=== PATIENT | female | born 1950 | race Caucasian/White ===

== ENCOUNTER → 2022-01-27 16:24 | Outpatient (BNVA) | payer OTHER, SELFPAY | PROVIDERS: Family Provider Internal Medicine; PCP Hospitalist; Visit Provider Internal Medicine | DX: M35.00 Sjogren syndrome, unspecified (principal) | CPT/HCPCS: 36415; 72040; 72100; 73502; 80053; 85025; 85651; 86140 ==

== ENCOUNTER → 2022-04-30 15:11 | Outpatient (BNVA) | payer OTHER, SELFPAY | PROVIDERS: Family Provider Internal Medicine; PCP Hospitalist; Visit Provider Internal Medicine | DX: M54.50 Low back pain, unspecified (principal); M35.00 Sjogren syndrome, unspecified | CPT/HCPCS: 80053; 85025; 85651; 86140 ==

== ENCOUNTER → 2022-08-04 15:31 | Outpatient (BNVA) | payer OTHER, SELFPAY | PROVIDERS: Family Provider Internal Medicine; PCP Hospitalist; Visit Provider Internal Medicine | DX: M54.9 Dorsalgia, unspecified (principal); M35.00 Sjogren syndrome, unspecified; R06.00 Dyspnea, unspecified; M54.50 Low back pain, unspecified | CPT/HCPCS: 36415; 80053; 83735; 84100; 84439; 84443; 85025; 85652; 86140 ==

== ENCOUNTER → 2022-09-23 13:39 | Outpatient (BNVA) | payer OTHER, SELFPAY | PROVIDERS: Family Provider Internal Medicine; PCP Hospitalist; Visit Provider Anesthesiology Pain Medicine | DX: M16.9 Osteoarthritis of hip, unspecified (principal) | CPT/HCPCS: 77002 ==

== ENCOUNTER 2022-09-30 09:37 | Outpatient (RCR) | payer MEDICARE, SELFPAY | END 2022-10-24 23:59 | disposition home or self-care (01) | LOC: SPT 09:37 | PROVIDERS: Family Provider Internal Medicine; PCP Hospitalist; Visit Provider Anesthesiology Pain Medicine | DX: M54.50 Low back pain, unspecified (principal); G89.29 Other chronic pain | CPT/HCPCS: 97110; 97161 ==

== ENCOUNTER → 2022-10-07 12:55 | Outpatient (BNVA) | payer MEDICARE, SELFPAY | PROVIDERS: Family Provider Internal Medicine; PCP Hospitalist; Visit Provider Anesthesiology Pain Medicine | DX: M16.12 Unilateral primary osteoarthritis, left hip (principal) | CPT/HCPCS: 20610; 77002; J1030; J3490 ==

== ENCOUNTER → 2022-10-21 08:51 | Outpatient (BNVA) | payer MEDICARE, SELFPAY | PROVIDERS: Family Provider Internal Medicine; PCP Hospitalist; Visit Provider Anesthesiology Pain Medicine | DX: M47.816 Spondylosis without myelopathy or radiculopathy, lumbar region (principal); M54.16 Radiculopathy, lumbar region; M16.11 Unilateral primary osteoarthritis, right hip | CPT/HCPCS: 99213; 99214 ==

== ENCOUNTER 2022-10-25 06:00 | Outpatient (RCR) | payer MEDICARE, SELFPAY | END 2022-11-24 23:59 | disposition home or self-care (01) | LOC: SPT 06:00 | PROVIDERS: PCP Hospitalist; Visit Provider Anesthesiology Pain Medicine | DX: M54.50 Low back pain, unspecified (principal); G89.29 Other chronic pain | CPT/HCPCS: 97110 ==

== ENCOUNTER 2022-11-28 08:43 | Outpatient (RCR) | payer MEDICARE, SELFPAY | END 2022-11-28 23:59 | disposition home or self-care (01) | LOC: SPT 08:43 | PROVIDERS: PCP Hospitalist; Visit Provider Anesthesiology Pain Medicine | DX: M54.50 Low back pain, unspecified (principal); G89.29 Other chronic pain | CPT/HCPCS: 97110 ==

== ENCOUNTER → 2022-12-01 14:30 | Outpatient (BNVA) | payer MEDICARE, SELFPAY | PROVIDERS: PCP Hospitalist; Visit Provider Internal Medicine | DX: H93.19 Tinnitus, unspecified ear (principal); M35.00 Sjogren syndrome, unspecified; M54.50 Low back pain, unspecified; M54.2 Cervicalgia | CPT/HCPCS: 99214 ==

== ENCOUNTER → 2022-12-09 08:42 | Outpatient (BNVA) | payer MEDICARE, SELFPAY | PROVIDERS: PCP Hospitalist; Visit Provider Otolaryngology | DX: H90.3 Sensorineural hearing loss, bilateral (principal); H93.13 Tinnitus, bilateral; Q18.1 Preauricular sinus and cyst | CPT/HCPCS: 99203 ==

== ENCOUNTER → 2023-01-21 13:22 | Outpatient (BNVA) | payer MEDICARE, SELFPAY | PROVIDERS: PCP Hospitalist; Visit Provider Internal Medicine | DX: M35.00 Sjogren syndrome, unspecified (principal); M54.50 Low back pain, unspecified; H93.19 Tinnitus, unspecified ear | CPT/HCPCS: 99213 ==

== ENCOUNTER → 2023-02-12 09:54 | Outpatient (BNVA) | payer MEDICARE, SELFPAY | PROVIDERS: PCP Hospitalist; Visit Provider Anesthesiology Pain Medicine | DX: M47.816 Spondylosis without myelopathy or radiculopathy, lumbar region; M54.16 Radiculopathy, lumbar region; M16.11 Unilateral primary osteoarthritis, right hip | CPT/HCPCS: 99214 ==

== ENCOUNTER → 2023-02-26 14:09 | Outpatient (BNVA) | payer MEDICARE, SELFPAY | PROVIDERS: PCP Hospitalist; Visit Provider Anesthesiology Pain Medicine | DX: M16.12 Unilateral primary osteoarthritis, left hip (principal) | CPT/HCPCS: 20610; 77002; J1030; J3490 ==

== ENCOUNTER → 2023-04-15 08:52 | Outpatient (BNVA) | payer MEDICARE, SELFPAY | PROVIDERS: PCP Hospitalist; Visit Provider Anesthesiology Pain Medicine | DX: M47.816 Spondylosis without myelopathy or radiculopathy, lumbar region; M54.16 Radiculopathy, lumbar region; M16.12 Unilateral primary osteoarthritis, left hip | CPT/HCPCS: 99213 ==

== ENCOUNTER → 2023-05-07 10:56 | Outpatient (BNVA) | payer MEDICARE, SELFPAY | PROVIDERS: PCP Hospitalist; Visit Provider Internal Medicine | DX: M35.00 Sjogren syndrome, unspecified (principal); M54.50 Low back pain, unspecified; Z79.899 Other long term (current) drug therapy; H93.19 Tinnitus, unspecified ear | CPT/HCPCS: 36415; 80053; 85025; 85651; 86140; 99214 ==

== ENCOUNTER → 2023-05-14 08:55 | Outpatient (BNVA) | payer MEDICARE, SELFPAY | PROVIDERS: PCP Hospitalist; Visit Provider Podiatrist Foot & Ankle Surgery | DX: M20.42 Other hammer toe(s) (acquired), left foot; M76.821 Posterior tibial tendinitis, right leg; M76.822 Posterior tibial tendinitis, left leg | CPT/HCPCS: 73630; 99203 ==

== ENCOUNTER → 2023-06-04 10:02 | Outpatient (BNVA) | payer MEDICARE, SELFPAY | PROVIDERS: PCP Hospitalist; Visit Provider Podiatrist Foot & Ankle Surgery | DX: M20.42 Other hammer toe(s) (acquired), left foot; M76.821 Posterior tibial tendinitis, right leg; M76.822 Posterior tibial tendinitis, left leg | CPT/HCPCS: 99213 ==

== ENCOUNTER 2023-07-15 11:07 | Outpatient (CLI) | payer MEDICARE, SELFPAY | END 2023-07-15 11:08 | disposition home or self-care (01) | LOC: SPT 11:07 | PROVIDERS: PCP Hospitalist; Visit Provider Podiatrist Foot & Ankle Surgery | DX: Z46.89 Encounter for fitting and adjustment of other specified devices (principal); M47.816 Spondylosis without myelopathy or radiculopathy, lumbar region; M54.16 Radiculopathy, lumbar region; M16.10 Unilateral primary osteoarthritis, unspecified hip; M76.829 Posterior tibial tendinitis, unspecified leg | CPT/HCPCS: 97760; 99214; L3030 ==

== ENCOUNTER → 2023-07-29 13:45 | Outpatient (BNVA) | payer MEDICARE, SELFPAY | PROVIDERS: PCP Hospitalist; Visit Provider Anesthesiology Pain Medicine | DX: M16.12 Unilateral primary osteoarthritis, left hip (principal); S73.192A Other sprain of left hip, initial encounter; X58.XXXA Exposure to other specified factors, initial encounter | CPT/HCPCS: 20610; 77002 ==

== ENCOUNTER → 2023-08-12 12:56 | Outpatient (BNVA) | payer MEDICARE, SELFPAY | PROVIDERS: PCP Hospitalist; Visit Provider Anesthesiology Pain Medicine | DX: M16.11 Unilateral primary osteoarthritis, right hip | CPT/HCPCS: 20610; 77002; J1010; J3490 ==

== ENCOUNTER 2023-08-27 09:17 | Outpatient (CLI) | payer MEDICARE, SELFPAY ==
--- NOTE | 2023-08-27 09:30 | MR_ITS ---
WS: [id number] EXAMINATION: MR hip LT wo con* [id number] ORDER DATE: 08/27/2023 9:42 AM COMPARISON: None. HISTORY: S73.199A - Other sprain of unspecified hip, initial encou... CONTRAST: None. TECHNIQUE: Coronal STIR of the Pelvis. Coronal proton density, coronal T1, axial T2 fat sat, axial T1 , sagittal T2 fat sat, and sagittal T1 performed of the hip. FINDINGS: Postoperative changes lower lumbar spine. Normal bone marrow signal in the LEFT femoral head and neck . No evidence of avascular necrosis. No edema in the LEFT acetabulum. Moderate degenerative narrowing LEFT hip. Normal bone marrow signal in the proximal femurs bilaterally. Moderate degenerative narrowing RIGHT hip. Normal bone marrow signal RIGHT hip. Mild degenerative art hritis sacroiliac joints. Normal visualized pubic rami. MR/MR hip LT wo con* [id number] IMPRESSION: 1. Moderate degenerative narrowing LEFT hip. No acute fractures. No evidence o f avascular necrosis. 2. Normal bone marrow signal in the LEFT femoral head and acetabulum. 3. Postoperative changes lower lumbar spine. 4. No other acute findings.
== END 2023-08-27 09:18 | disposition home or self-care (01) ==
LOC: RAD 09:20
PROVIDERS: PCP Hospitalist; Visit Provider Anesthesiology Pain Medicine
DX: S73.192A Other sprain of left hip, initial encounter (principal); M16.12 Unilateral primary osteoarthritis, left hip; X58.XXXA Exposure to other specified factors, initial encounter
CPT/HCPCS: 73721

== ENCOUNTER → 2023-09-07 09:32 | Outpatient (BNVA) | payer MEDICARE, SELFPAY | PROVIDERS: PCP Hospitalist; Visit Provider Anesthesiology Pain Medicine | DX: M54.50 Low back pain, unspecified (principal); G89.29 Other chronic pain; M25.551 Pain in right hip; M25.552 Pain in left hip | CPT/HCPCS: 72110; 99214 ==

== ENCOUNTER → 2023-09-09 14:40 | Outpatient (BNVA) | payer MEDICARE, SELFPAY | PROVIDERS: PCP Hospitalist; Visit Provider Internal Medicine Rheumatology | DX: M35.00 Sjogren syndrome, unspecified (principal); Z79.899 Other long term (current) drug therapy; Z11.59 Encounter for screening for other viral diseases; Z11.1 Encounter for screening for respiratory tuberculosis; M18.11 Unilateral primary osteoarthritis of first carpometacarpal joint, right hand; M19.041 Primary osteoarthritis, right hand; M81.0 Age-related osteoporosis without current pathological fracture; M19.90 Unspecified osteoarthritis, unspecified site | CPT/HCPCS: 36415; 73130; 80076; 82565; 85025; 85651; 86140; 86200; 86431; 86480; 86704; 86803; 87340; 99214 ==

== ENCOUNTER → 2023-09-24 09:14 | Outpatient (BNVA) | payer MEDICARE, SELFPAY | PROVIDERS: PCP Hospitalist; Visit Provider Anesthesiology Pain Medicine | DX: M54.50 Low back pain, unspecified (principal); M25.551 Pain in right hip; M25.552 Pain in left hip | CPT/HCPCS: 99214 ==

== ENCOUNTER 2023-12-23 10:42 | Outpatient (CLI) | payer MEDICARE, SELFPAY ==
[2023-12-23 11:14] LABS: Basophils % 0.4 %; Eosinophils # 0.1 10^3/uL (0.0-0.8); Eosinophils % 2.8 %; Hematocrit 40.1 % (36-47); Lymphocytes # 1.3 10^3/uL (0.8-4.8); Lymphocytes % 27.8 %; Mean Corpuscular HGB Conc 31.9 g/dL (30-55); Mean Corpuscular Hemoglobin 26.9 pg (27-33); Mean Corpuscular Volume 84.4 fl (85-98); Mean Platelet Volume 10.7 fL (7.4-10.4); Monocytes # 0.4 10^3/uL (0.2-0.9); Monocytes % 8.5 %; Neutrophils # 2.85 10^3/uL (1.8-7.7); Neutrophils % 60.3 %; Nucleated Red Blood Cells % 0 %; Platelet Count 228 10^3/cmm (157-399); Red Blood Count 4.75 10^6/uL (3.85-5.65); Red Cell Distribution Width 13.1 % (12.1-15.1); White Blood Count 4.72 10^3/uL (3.29-11.43)
[2023-12-23 11:16] LABS: Erythrocyte Sedimentation Rate 16 mm/hr (0-15)
[2023-12-23 11:32] LABS: Alanine Aminotransferase 47 U/L (0-33); Alkaline Phosphatase 101 U/L (35-105); Aspartate Amino Transferase 21 U/L (0-32); Globulin 2.6 g/dL (1.3-4.6); Total Bilirubin 0.3 mg/dL (0.15-1.2); Total Protein 6.6 g/dL (6.6-8.7)
== END 2023-12-23 10:43 | disposition home or self-care (01) ==
LOC: LAB 10:43
PROVIDERS: PCP Hospitalist; Visit Provider Internal Medicine Rheumatology
DX: Z79.899 Other long term (current) drug therapy (principal); M19.90 Unspecified osteoarthritis, unspecified site
CPT/HCPCS: 36415; 80076; 82565; 85025; 85651; 86140

== ENCOUNTER → 2024-01-27 13:49 | Outpatient (BNVA) | payer MEDICARE, SELFPAY | PROVIDERS: PCP Hospitalist; Visit Provider Internal Medicine Rheumatology | DX: M35.00 Sjogren syndrome, unspecified (principal); M81.0 Age-related osteoporosis without current pathological fracture; M19.90 Unspecified osteoarthritis, unspecified site; Z79.899 Other long term (current) drug therapy | CPT/HCPCS: 99214 ==

== ENCOUNTER 2024-03-02 10:43 | Outpatient (CLI) | payer MEDICARE, SELFPAY ==
[2024-03-02 11:38] LABS: Basophils % 0.7 %; Eosinophils # 0.1 10^3/uL (0.0-0.8); Eosinophils % 2.1 %; Hematocrit 37.4 % (36-47); Lymphocytes # 1.4 10^3/uL (0.8-4.8); Lymphocytes % 24.7 %; Mean Corpuscular HGB Conc 32.6 g/dL (30-55); Mean Corpuscular Hemoglobin 27.5 pg (27-33); Mean Corpuscular Volume 84.4 fl (85-98); Mean Platelet Volume 10.6 fL (7.4-10.4); Monocytes # 0.5 10^3/uL (0.2-0.9); Monocytes % 8.6 %; Neutrophils # 3.69 10^3/uL (1.8-7.7); Neutrophils % 63.6 %; Nucleated Red Blood Cells % 0 %; Platelet Count 239 10^3/cmm (157-399); Red Blood Count 4.43 10^6/uL (3.85-5.65)
[2024-03-02 11:59] LABS: Alanine Aminotransferase 56 U/L (0-33); Albumin Level 3.8 g/dL (3.5-5.2); Alkaline Phosphatase 96 U/L (35-105); Aspartate Amino Transferase 20 U/L (0-32); Total Bilirubin 0.3 mg/dL (0.15-1.2); Total Protein 5.8 g/dL (6.6-8.7)
[2024-03-02 12:25] LABS: Erythrocyte Sedimentation Rate 28 mm/hr (0-15)
== END 2024-03-02 10:44 | disposition home or self-care (01) ==
LOC: LAB 10:44
PROVIDERS: PCP Hospitalist; Visit Provider Internal Medicine Rheumatology
DX: Z79.899 Other long term (current) drug therapy (principal); M19.90 Unspecified osteoarthritis, unspecified site; M35.00 Sjogren syndrome, unspecified
CPT/HCPCS: 36415; 80076; 82565; 85025; 85651; 86140

== ENCOUNTER 2024-04-20 18:42 | Emergency (ER) | payer MEDICARE, SELFPAY ==
[2024-04-20 19:03] VITALS: BP 156/95; PULSE 72; RESP 18; TEMP 36.9; O2SAT 93; BMI 35.2
--- NOTE | 2024-04-20 19:08 | XRR_ITS ---
PROCEDURE INFORMATION: Exam: XR Right Hip Exam date and time: 04/20/2024 7:26 PM Age: 73 years old Clinical indication: Hip pain; Right hip; Additional info: W/ pelvis, severe pain TECHNIQUE: Imaging protocol: Radiologic exam of the right hip. Views: 1 view hip with pelvis when performed. COMPARISON: CR XR hip RT 2-3V wo/w pel* [id number] 01/27/2022 4:28 PM FINDINGS: Bones/joints: Unremarkable. No acute fracture. Soft tissues: Unremarkable. XR/XR hip RT 2-3V wo/w pel* [id number] IMPRESSION: No acute findings.
--- NOTE | 2024-04-20 19:08 | XRR_ITS ---
PROCEDURE INFORMATION: Exam: XR Lumbosacral Spine Exam date and time: 04/20/2024 7:29 PM Age: 73 years old Clinical indication: Low back pain; Prior surgery; Surgery date: 6+ months; Surgery type: L-spine; Additional info: Back surgery 2 years ago, severe pain TECHNIQUE: Imaging protocol: Radiologic exam of the lumbosacral spine. Views: 2 or 3 views. COMPARISON: CR (PELVIS, ) 04/20/2024 7:26 PM FINDINGS: Tubes, catheters and devices: Posterior fusion from L4 through S1 with intervertebral disc devices. The hardware appears intact. Bones/joints: Preserved lumbar vertebral body heights otherwise. Facet degenerative changes. Degenerative disc changes between L1-L2. Soft tissues: Unremarkable. XR/XR lumbar spine 2-3V* [id number] IMPRESSION: As above.
--- NOTE | 2024-04-20 19:09 | W.ED.BACK ---
HPI - Back Pain/Injury General: Chief Complaint: Extremity Injury, Lower Stated Complaint: right leg pain Time Seen by Provider: 04/20/24 19:01 Source: patient Mode of arrival: ambulatory Limitations: no limitations History of Present Illness: Patient is a 73-year-old female who presents the emergency department complaining of right low back and right hip pain for the past week. Patient states this has been making it hard to walk. Denies any falls or trauma, but wants to make sure her hip is not fractured. States that the pain radiates all the way down her right leg, denies history of DVT. She is not reporting any calf pain or swelling, redness or coolness to her extremities, or other concerning signs or symptoms of DVT. States that she has been taking some old hydrocodone at home and that this only takes the edge off but comes right back. She also states that she takes pregabalin and venlafaxine for fibromyalgia. She does report a history of low back surgery. She is not reporting any bowel or bladder incontinence, distal paralysis or paresthesias, saddle anesthesia, or other concerning red flag symptoms. Does not report any fevers, trauma, unexplained weight loss, neurological symptoms, IVDU, steroid use, or history of cancer. MD elicited complaint: back pain Onset (ago): week(s) Timing: constant Severity: severe Location: right lower back Radiation: other (Right hip, right lower extremity) Exacerbating factors: movement and walking Relieving factors: none Associated symptoms: Deny abdominal pain, difficulty walking, fecal incontinence, fever(s) or syncope Treatments prior to arrival: prescription analgesics Related Data Home Medications Medication Instructions Recorded Confirmed ascorbate calcium (vitamin C) 500 500 mg PO DAILY 10/25/21 01/27/24 mg tablet atorvastatin 40 mg tablet 40 mg PO DAILY 10/25/21 01/27/24 brimonidine 0.2 %-timolol 0.5 % 1 drp ophthalmic (eye) BID 10/25/21 01/27/24 eye drops (Combigan) calcium carbonate 200 mg PO BID 10/25/21 01/27/24 carvedilol 25 mg tablet 25 mg PO BID 10/25/21 01/27/24 fluticasone propionate 50 1 spray intranasal DAILY 10/25/21 01/27/24 mcg/actuation nasal spray,suspension indapamide 1.25 mg tablet 1.25 mg PO QAM 10/25/21 01/27/24 levothyroxine 50 mcg capsule 50 mcg PO DAILY 10/25/21 01/27/24 magnesium oxide 500 mg capsule 500 mg PO DAILY 10/25/21 01/27/24 multivitamin 1 tab PO DAILY 10/25/21 01/27/24 potassium chloride 20 mEq 20 meq PO DAILY 10/25/21 01/27/24 tablet,extended release vitamin A-vitamin C-vit E-min 1 tab PO DAILY 10/25/21 01/27/24 tablet furosemide 20 mg tablet 20 mg PO DAILY 07/15/23 01/27/24 triamcinolone acetonide 0.1 % 1 applic dental BID 09/09/23 01/27/24 dental paste Previous Rx's Medication Instructions Recorded prednisone 5 mg tablet See Rx Instructions PO DAILY #60 01/21/23 tabs custom orthotics #1 ea 06/04/23 leflunomide 20 mg tablet 20 mg PO DAILY #90 tabs 01/27/24 venlafaxine 75 mg tablet See Rx Instructions .Route 02/22/24 .COMPLEX #270 tabs pregabalin 200 mg capsule (Lyrica) 200 mg PO TID #270 caps 02/29/24 prednisone 20 mg tablet 40 mg (2 x 20 mg) PO ONCE 5 days 04/20/24 #10 tabs Allergies Allergy/AdvReac Type Severity Reaction Status Date / Time acetaminophen [From Percocet] Allergy Mild hallucinati Verified 04/20/24 19:12 ons cefdinir Allergy Mild hives Verified 04/20/24 19:12 nickel Allergy Mild hives Verified 04/20/24 19:12 oxycodone [From Percocet] Allergy Mild hallucinati Verified 04/20/24 19:12 ons Sulfa (Sulfonamide Allergy Mild hives Verified 04/20/24 19:12 Antibiotics) oxymetazoline Allergy Unknown Verified 04/20/24 19:12 Penicillins Allergy hives Verified 04/20/24 19:12 Review of Systems General: Reports: 10 or more systems reviewed and unremarkable except in HPI and below Const: Reports: other (denies trauma); Denies: fever(s), change in weight or night sweats Card: Denies: chest pain, lightheadedness or syncope Resp: Denies: dyspnea GI: Denies: abdominal pain or fecal incontinence : Denies: urinary incontinence Musc: Reports: back pain, extremity pain and other (No calf pain or swelling); Denies: neck pain or extremity swelling Skin/Breast: Denies: rash, erythema or skin pain Neuro: Denies: headache(s), numbness in extremities, weakness in extremities, sensory changes, lack of coordination, difficulty walking, frequent falls or involuntary movements PFSH ED PFSH: Medical History Inflammatory arthritis High risk medication use Arthropathy of hand Hypothyroidism Vaginal atrophy Cervical spondylosis Carpal tunnel syndrome [place]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 Hypertension IBS (irritable bowel syndrome) Stress incontinence Multinodular thyroid LIM[place] (obstructive sleep apnea) Osteoarthritis Osteopenia Plantar fasciitis Seborrheic keratoses Spinal enthesopathy Right lumbar radiculopathy Dyspnea Fibromyalgia Lumbar spondylosis Sjogren syndrome, unspecified Surgical History History of umbilical hernia repair 1975 History of inguinal hernia repair 1975 History of hemorrhoidectomy 1999 History of cholecystectomy 2000 History of carpal tunnel release 2004 History of fusion of cervical spine 2005 History of sinus surgery 2010,2014 History of surgery on wrist 2016,2017 History of cataract extraction 2017 History of back surgery 2021 Family History Other CAD (coronary artery disease) Dementia Stroke Denies family history of Rheumatoid arthritis Diabetes Lupus Chronic kidney disease (CKD) Lung disease Cancer Social History Smoking and tobacco/nicotine status: never used tobacco/nicotine Alcohol intake: never Substance/Drug Use: never Lives independently: Yes Household members: spouse and children Marital status: Physical Exam Const: COMMON NORMALS: patient oriented x3, no limitations, healthy appearing and alert OTHER: Mild distress, appearing comfortable in bed secondary to pain Resp: COMMON NORMALS: normal respiratory effort, No retractions, No use of accessory muscles and clear to auscultation bilaterally AUSCULTATION: clear to auscultation bilaterally Cardio: COMMON NORMALS: regular rate, regular rhythm, S1 normal heart sound present and S2 normal heart sound present RATE: regular rate RHYTHM: regular rhythm HEART SOUNDS: S1 normal heart sound present and S2 normal heart sound present Back/Pelvis: OTHER: Normal visual examination. No spinous process tenderness or paracervical, parathoracic, or paralumbar tenderness to palpation. Full active range of motion. Extremity: COMMON NORMALS: normal to inspection and full ROM NARRATIVE EXTREMITY EXAM: Mild reproducible tenderness to palpation to the right lateral hip, no shortening or external/internal rotation of the right lower extremity. Diffusely throughout the right lower extremity is endorsing tenderness to light palpation. No calf pain on palpation, redness, or swelling. Distal pulses 2+. Distal strength is intact. She does endorse a positive straight leg raise testing on the right, negative on the left. Neuro: COMMON NORMALS: patient oriented x3, moves all extremities, no focal motor deficits, no sensory deficits noted, deep tendon reflexes 2+ bilaterally and gait normal SENSORIUM/ORIENTATION: Yes alert OTHER: L3, L4, L5, and S1 nerve sensations intact. Normal knee jerk and ankle jerk reflexes. Skin: COMMON NORMALS: no rashes or lesions noted GENERAL SKIN EXAM: no rashes or lesions noted Course Vital Signs: Vital signs: Vital Signs Temperature 98.4 F 04/20/24 19:03 Pulse Rate 72 04/20/24 19:03 Respiratory Rate 18 04/20/24 19:03 Blood Pressure 156/95 04/20/24 19:03 Pulse Oximetry 93 04/20/24 19:03 Oxygen Delivery Me thod Room Air 04/20/24 19:03 MDM - Back Pain/Injury Medical Decision Making Patient presenting with right lower back pain for the past week. Her x-rays were negative. Did report a history of fibromyalgia, on multiple different medications for her neuropathic pain as well as general pain. Has been taking [place] prior to coming in. She had no red flag back symptoms to report. Specifically her hardware was in place on x-ray from prior back surgery. Unknown what is causing her pain, though does not seem to be anything emergent. Tried Dilaudid here but stated that this did not help at all. For this informed her that she needs to follow-up with primary care to potentially be referred to pain control, she endorses understanding of this and will be discharged home at this time. Will try short course of steroids at her request. Labs Radiology Impressions Hip/Pelvis X-Ray 04/20/24 19:08 IMPRESSION: No acute findings. Lumbar Spine X-Ray 04/20/24 19:08 IMPRESSION: As above. All radiology interpretation(s) finalized by discharge Discharge Plan Discharge Patient Disposition: Home Clinical Impression: Low back pain Qualifiers: Chronicity: chronic Back pain laterality: unspecified Sciatica presence: without sciatica Qualified Code(s): M54.50 - Low back pain, unspecified Condition: Stable Prescriptions: New prednisone 20 mg tablet 40 mg PO ONCE 5 Days Qty: 10 0RF No Action furosemide 20 mg tablet 20 mg PO DAILY Patient Comments: rx 3 x week every other day triamcinolone acetonide 0.1 % paste 1 applic dental BID Rx Instructions: use after food and/or drink and/or oral hygiene atorvastatin 40 mg tablet 40 mg PO DAILY ascorbate calcium (vitamin C) 500 mg tablet 500 mg PO DAILY carvedilol 25 mg tablet 25 mg PO BID Rx Instructions: must administer with a meal/food brimonidine-timolol [Combigan] 0.2-0.5 % drops 1 drp ophthalmic (eye) BID fluticasone propionate 50 mcg/actuation spray,suspension 1 spray intranasal DAILY Rx Instructions: administer into each nostril calcium carbonate 200 mg calcium (500 mg) tablet,chewable 200 mg PO BID indapamide 1.25 mg tablet 1.25 mg PO QAM levothyroxine 50 mcg capsule 50 mcg PO DAILY magnesium oxide 500 mg capsule 500 mg PO DAILY multivitamin Tablet 1 tab PO DAILY vitamin A-vitamin C-vit E-min Tablet 1 tab PO DAILY potassium chloride 20 mEq tablet extended release 20 meq PO DAILY prednisone 5 mg tablet See Rx Instructions PO DAILY Qty: 60 0RF Rx Instructions: 15mg po qday x 3 days, 10mg po qday x 5days, then 5mg po qday x 1 week orally daily; (DME) custom orthotics See Rx Instructions .Route .MEDSUPPLY Qty: 1 0RF Rx Instructions: As directed leflunomide 20 mg tablet 20 mg PO DAILY Qty: 90 1RF venlafaxine 75 mg tablet See Rx Instructions .ROUTE .COMPLEX Qty: 270 0RF Dose Instruction: TAKE 2 TABLETS BY MOUTH IN THE MORNING AND ONE TABLET IN THE EVENING DAILY Rx Instructions: TAKE 2 TABLETS BY MOUTH IN THE MORNING AND ONE TABLET IN THE EVENING DAILY pregabalin [Lyrica] 200 mg capsule 200 mg PO TID Qty: 270 0RF Discharge Orders: Discharge ED (Routine); Ordered 04/20/24 Ordered By: Crow Arnett Referrals: Laci Stout MD [Primary Care Provider] - Patient Instructions: Back Pain (ED) Activity Restrictions/Additional Instructions: Continue taking your [place] at home. Follow-up with primary care next week as discussed. Short course of prednisone. Please see attached patient instructions for further education. 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
[2024-04-20] MEDS: orphenadrine 30 mg/mL Inj 2 mL 60 MG IM (19:20)
[2024-04-20] MEDS: ketorolac 60 mg/2 mL INJ IM (19:21)
[2024-04-20] MEDS: dexamethasone 10 mg/mL INJ 8 MG IM (21:03)
[2024-04-20] MEDS: HYDROcodone-acetaminophen 5-325 mg Tablet 2 TAB PO (21:03)
[2024-04-20 21:14] VITALS: BP 192/106; PULSE 70; RESP 16; O2SAT 95
== END 2024-04-20 21:09 | disposition home or self-care (01) ==
PROVIDERS: Emergency Provider Physician Assistant; PCP Hospitalist
DX: M54.50 Low back pain, unspecified (principal); I10 Essential (primary) hypertension
CPT/HCPCS: 72100; 73502; 96372; 99284; J1100; J1885; J2360

== ENCOUNTER 2024-05-31 12:08 | Outpatient (CLI) | payer MEDICARE, SELFPAY ==
[2024-05-31 12:27] LABS: Basophils % 0.3 %; Eosinophils # 0.2 10^3/uL (0.0-0.8); Eosinophils % 2.7 %; Hematocrit 39.6 % (36-47); Lymphocytes # 2.1 10^3/uL (0.8-4.8); Mean Corpuscular HGB Conc 31.3 g/dL (30-55); Mean Corpuscular Volume 86.3 fl (85-98); Mean Platelet Volume 10.9 fL (7.4-10.4); Monocytes # 0.6 10^3/uL (0.2-0.9); Monocytes % 8.9 %; Neutrophils # 3.85 10^3/uL (1.8-7.7); Neutrophils % 56.8 %; Nucleated Red Blood Cells % 0 %; Platelet Count 262 10^3/cmm (157-399); Red Blood Count 4.59 10^6/uL (3.85-5.65); Red Cell Distribution Width 14.6 % (12.1-15.1); White Blood Count 6.77 10^3/uL (3.29-11.43)
[2024-05-31 12:28] LABS: Erythrocyte Sedimentation Rate 6 mm/hr (0-15)
[2024-05-31 12:55] LABS: Alanine Aminotransferase 33 U/L (0-33); Alkaline Phosphatase 85 U/L (35-105); Aspartate Amino Transferase 17 U/L (0-32); C Reactive Protein 4.6 mg/L (0.0-4.9); Globulin 2.8 g/dL (1.3-4.6); Total Bilirubin 0.2 mg/dL (0.15-1.2); Total Protein 6.8 g/dL (6.6-8.7)
== END 2024-05-31 12:09 | disposition home or self-care (01) ==
LOC: LAB 12:10
PROVIDERS: PCP Hospitalist; Visit Provider Internal Medicine Rheumatology
DX: Z79.899 Other long term (current) drug therapy (principal); M06.00 Rheumatoid arthritis without rheumatoid factor, unspecified site
CPT/HCPCS: 36415; 80076; 82565; 85025; 85651; 86140

== ENCOUNTER → 2024-06-08 10:31 | Outpatient (BNVA) | payer MEDICARE, SELFPAY | PROVIDERS: PCP Hospitalist; Visit Provider Internal Medicine Rheumatology | DX: M35.00 Sjogren syndrome, unspecified (principal); Z79.899 Other long term (current) drug therapy; M81.0 Age-related osteoporosis without current pathological fracture; M19.90 Unspecified osteoarthritis, unspecified site | CPT/HCPCS: 99214 ==

== ENCOUNTER 2024-07-26 11:27 | Outpatient (CLI) | payer MEDICARE, SELFPAY ==
[2024-07-26 11:50] LABS: Basophils # 0.1 10^3/uL (0.0-0.1); Basophils % 0.8 %; Eosinophils # 0.2 10^3/uL (0.0-0.8); Eosinophils % 2.8 %; Hematocrit 41.3 % (36-47); Lymphocytes # 1.3 10^3/uL (0.8-4.8); Lymphocytes % 20.5 %; Mean Corpuscular HGB Conc 31.7 g/dL (30-55); Mean Corpuscular Hemoglobin 27.2 pg (27-33); Mean Corpuscular Volume 85.7 fl (85-98); Mean Platelet Volume 10.8 fL (7.4-10.4); Monocytes # 0.5 10^3/uL (0.2-0.9); Monocytes % 7.7 %; Neutrophils % 67.9 %; Nucleated Red Blood Cells % 0 %; Platelet Count 244 10^3/cmm (157-399); Red Blood Count 4.82 10^6/uL (3.85-5.65); Red Cell Distribution Width 13.5 % (12.1-15.1); White Blood Count 6.48 10^3/uL (3.29-11.43)
[2024-07-26 11:54] LABS: Erythrocyte Sedimentation Rate 5 mm/hr (0-15)
[2024-07-26 12:24] LABS: Alanine Aminotransferase 34 U/L (0-33); Albumin Level 3.8 g/dL (3.5-5.2); Alkaline Phosphatase 95 U/L (35-105); Aspartate Amino Transferase 14 U/L (0-32); Globulin 2.4 g/dL (1.3-4.6); Total Bilirubin 0.4 mg/dL (0.15-1.2); Total Protein 6.2 g/dL (6.6-8.7)
== END 2024-07-26 11:28 | disposition home or self-care (01) ==
LOC: LAB 11:30
PROVIDERS: PCP Hospitalist; Visit Provider Internal Medicine Rheumatology
DX: M35.00 Sjogren syndrome, unspecified (principal); Z79.899 Other long term (current) drug therapy
CPT/HCPCS: 36415; 80076; 82565; 85025; 85651; 86140

== ENCOUNTER → 2024-09-28 10:39 | Outpatient (BNVA) | payer MEDICARE, SELFPAY | PROVIDERS: PCP Hospitalist; Visit Provider Internal Medicine Rheumatology | DX: M35.00 Sjogren syndrome, unspecified (principal); Z79.899 Other long term (current) drug therapy; M81.0 Age-related osteoporosis without current pathological fracture; M19.90 Unspecified osteoarthritis, unspecified site | CPT/HCPCS: 99214 ==

== ENCOUNTER 2024-10-11 09:27 | Outpatient (CLI) | payer MEDICARE, SELFPAY ==
--- NOTE | 2024-10-11 09:37 | USCV_ITS ---
Vi Thacker Age: 74 Gender: F : 1950 Exam Date: 10/11/2024 09:54 Ordering Phys: Sriram Abbasi Technologist: [place] [facility] [place]: [place] Risk Factors: Previous Vascular Surgery: Right Brachial BP: / Left Brachial BP: / Right Left Velocity (cm/s) Spectral Plaque Velocity (cm/s) Spectral Plaque Syst/Diast Broadening Syst/Diast Broadening 82.80/ 19.30 Prox CCA 86.60 / 19.10 63.40/ 18.00 Mid CCA 69.70 / 14.90 47.80/ 15.40 Distal CCA 68.70 / 20.70 35.80/ 11.90 Prox ICA 81.20 / 10.20 45.00/ 13.30 Mid ICA 53.10 / 17.60 39.50/ 17.50 Distal ICA 44.70 / 16.20 61.30 ECA 104.20 0.70 ICA/CCA 1.20 Antegrade Vertebral Antegrade 30.70/ 11.30 cm/s 20.30/ 6.70 cm/s Tri Subclavian Tri 93.10 96.60 CONCLUSIONS Right ICA stenosis <50%. Mild atheromatous plaque right carotid bulb/ICA. Left ICA stenosis <50%. Mild atheromatous plaque left carotid bulb/ICA. Normal antegrade Doppler flow noted in the right vertebral artery. Normal antegrade Doppler flow noted in the left vertebral artery. Vinny Mckee MD (Electronically Signed) Final Date: 11 October 2024 14:12 S
== END 2024-10-11 09:28 | disposition home or self-care (01) ==
PROVIDERS: PCP Hospitalist; Visit Provider Physician Assistant Medical
DX: G45.3 Amaurosis fugax (principal)
CPT/HCPCS: 93880

== ENCOUNTER 2024-11-01 13:45 | Outpatient (CLI) | payer MEDICARE, SELFPAY ==
[2024-11-01 14:38] LABS: Hematocrit 37.6 % (36-47); Hemoglobin 11.90 g/dL (11.27-16.99); Mean Corpuscular HGB Conc 31.6 g/dL (30-55); Mean Corpuscular Hemoglobin 27.1 pg (27-33); Mean Corpuscular Volume 85.6 fl (85-98); Nucleated Red Blood Cells % 0 %; Platelet Count 193 10^3/cmm (157-399); Red Blood Count 4.39 10^6/uL (3.85-5.65); White Blood Count 4.98 10^3/uL (3.29-11.43)
[2024-11-01 14:59] LABS: Alanine Aminotransferase 30 U/L (0-33); Albumin Level 3.7 g/dL (3.5-5.2); Alkaline Phosphatase 103 U/L (35-105); Aspartate Amino Transferase 18 U/L (0-32); Globulin 2.8 g/dL (1.3-4.6); Total Protein 6.5 g/dL (6.6-8.7)
== END 2024-11-01 13:46 | disposition home or self-care (01) ==
LOC: LAB 13:48
PROVIDERS: PCP Hospitalist; Visit Provider Internal Medicine Rheumatology
DX: M35.00 Sjogren syndrome, unspecified (principal); Z79.899 Other long term (current) drug therapy
CPT/HCPCS: 36415; 80076; 82565; 85025; 85651; 86140

== ENCOUNTER → 2024-11-14 14:15 | Outpatient (BNVA) | payer MEDICARE, SELFPAY | PROVIDERS: PCP Hospitalist; Visit Provider Internal Medicine Rheumatology | DX: M70.61 Trochanteric bursitis, right hip (principal) | CPT/HCPCS: 20610; J1010; J9999 ==

== ENCOUNTER → 2024-12-15 14:21 | Outpatient (BNVA) | payer MEDICARE, SELFPAY | PROVIDERS: PCP Hospitalist; Visit Provider Internal Medicine Rheumatology | DX: M35.00 Sjogren syndrome, unspecified (principal); Z79.899 Other long term (current) drug therapy; M81.0 Age-related osteoporosis without current pathological fracture; M19.90 Unspecified osteoarthritis, unspecified site | CPT/HCPCS: 99214 ==

== ENCOUNTER 2025-03-17 11:09 | Outpatient (CLI) | payer MEDICARE, SELFPAY ==
[2025-03-17 11:45] LABS: Hematocrit 37.6 % (36-47); Hemoglobin 12.10 g/dL (11.27-16.99); Mean Corpuscular HGB Conc 32.2 g/dL (30-55); Mean Corpuscular Hemoglobin 29.0 pg (27-33); Mean Corpuscular Volume 90.2 fl (85-98); Nucleated Red Blood Cells % 0 %; Platelet Count 244 10^3/cmm (157-399); Red Blood Count 4.17 10^6/uL (3.85-5.65); White Blood Count 6.48 10^3/uL (3.29-11.43)
[2025-03-17 12:20] LABS: Hepatitis B Surface Antigen Non-Reactive (Nonreactive)
[2025-03-17 12:21] LABS: Alanine Aminotransferase 34 U/L (0-33); Albumin Level 3.8 g/dL (3.5-5.2); Alkaline Phosphatase 89 U/L (35-105); Aspartate Amino Transferase 18 U/L (0-32); Globulin 2.5 g/dL (1.3-4.6); Total Protein 6.3 g/dL (6.6-8.7)
== END 2025-03-17 11:10 | disposition home or self-care (01) ==
LOC: LAB 11:11
PROVIDERS: PCP Hospitalist; Visit Provider Internal Medicine Rheumatology
DX: Z79.899 Other long term (current) drug therapy (principal); M81.0 Age-related osteoporosis without current pathological fracture
CPT/HCPCS: 80076; 82306; 82565; 85025; 85651; 86140; 86480; 86704; 86803; 87340